=== PATIENT | female | born 1980 | race Caucasian/White ===

== ENCOUNTER 2018-04-13 15:23 | Emergency (ER) | payer OTHER ==
[~2018-04-13] VITALS: Ht 172.7 cm; Wt 63.5 kg
[~2018-04-13 15:23] MED LIST: CENTRUM SILVER1 EAC2 PO; IBUPROFEN 600600 M1 PO; MENSTRUAL RELI1 EACH PO; NORCO 5-325 TA1 EACH PO; PERMETHRIN60 GM TOP
[2018-04-13] MEDS ORDERED: BIRTH CONTROL PO (15:28)
[2018-04-13] MEDS ORDERED: TRAMADOL 50 MG50 MG PO (16:03)
[2018-04-13] MEDS ORDERED: PENICILLIN VK500 M1 PO (16:03)
[2018-04-13 16:19] VITALS: BP 138/86
== END 2018-04-13 16:20 | disposition home or self-care (01) ==
LOC: ER 15:23
DX: K02.9 Dental caries, unspecified (principal); F17.210 Nicotine dependence, cigarettes, uncomplicated

== ENCOUNTER 2018-04-23 15:21 | Emergency (ER) | payer OTHER ==
[~2018-04-23] VITALS: Ht 167.6 cm; Wt 77.1 kg
[~2018-04-23 15:21] MED LIST changes: +BIRTH CONTROL PO; +PENICILLIN VK500 M1 PO; +TRAMADOL 50 MG50 MG PO
[2018-04-23] MEDS ORDERED: ERYTHROMYCIN E3.5 G3 OPHTHALMIC (16:08)
[2018-04-23 17:09] VITALS: BP 134/79
== END 2018-04-23 17:10 | disposition home or self-care (01) ==
LOC: ER 15:21
DX: H10.89 Other conjunctivitis (principal); B96.89 Other specified bacterial agents as the cause of diseases classified elsewhere; F17.210 Nicotine dependence, cigarettes, uncomplicated; E28.2 Polycystic ovarian syndrome; Z90.49 Acquired absence of other specified parts of digestive tract

== ENCOUNTER 2019-02-05 00:05 | Emergency (ER) | payer OTHER ==
[~2019-02-05] VITALS: Ht 172.7 cm; Wt 78.5 kg
[~2019-02-05 00:05] MED LIST changes: +ERYTHROMYCIN E3.5 G3 OPHTHALMIC
[2019-02-05 00:34] LABS: ABSOLUTE NEUTROPHILS 7.3 thou/uL (1.4-8.2); BASOPHILS 1.3 % (0.0-2.0); EOSINOPHILS 5.8 % (0.0-3.0); HEMATOCRIT 37.1 % (37.0-47.0); HEMOGLOBIN 12.4 gm/dL (12.0-15.0); LYMPHOCYTES 23.4 % (24.0-44.0); MCH 28.5 pg (26.0-34.0); MCHC 33.3 g/dL (28.0-37.0); MCV 85.4 fL (80.0-100.0); MONOCYTES 7.6 % (1.0-8.0); PLATELET COUNT 511 thou/uL (150-400); POLYS 61.9 % (36.0-66.0); RBC 4.34 mil/uL (4.20-5.00); RDW 15.7 % (10.5-14.5); WBC 11.8 thou/uL (4.0-11.0)
[2019-02-05 00:41] LABS: ANION GAP 6 mmol/L (7-16); BUN 10 mg/dL (7-18); CALCIUM 9.2 mg/dL (8.5-10.1); CHLORIDE 105 mmol/L (98-107); CO2 30 mmol/L (21-32); CREATININE 0.8 mg/dL (0.6-1.0); GLUCOSE 116 mg/dL (74-106); POTASSIUM 3.5 mmol/L (3.5-5.1); SODIUM 141 mmol/L (136-145)
[2019-02-05 00:51] LABS: ALBUMIN 3.2 g/dL (3.4-5.0); MAGNESIUM 1.9 mg/dL (1.8-2.4); SGOT 10 U/L (15-37); SGPT 13 U/L (30-65); TOTAL BILIRUBIN 0.4 mg/dL (<0.1-1.0); TOTAL PROTEIN 7.3 g/dL (6.4-8.2); TROPONIN-I <0.06 ng/mL (<0.06)
[2019-02-05 01:11] VITALS: BP 116/81
--- NOTE | 2019-02-06 14:01 | EKG ---
[address] [address] ELECTROCARDIOGRAM REPORT Name: DANILO MALHOTRA Room #: DEP [facility]#: [id number] Admission: 02/05/19 Attend Phys: Discharge: 02/05/19 Date of : 78 Report #: [id number] THIS REPORT FOR: //name// [facility] ED Test Date: 2019-02-05 Test Time: 00:55:33 Pat Name: DANILO MALHOTRA Department: Room: Gender: F Machine Driller: [id number] : 1980 Requested By: Matty Sood Order Number: [id number] MD: Gab Bowen Measurements Intervals [place] Rate: 58 P: -12 NE: 181 QRS: -12 QRSD: 103 T: 12 QT: 427 QTc: 420 Interpretive Statements Sinus rhythm Low voltage, precordial leads No previous ECG available for comparison Electronically Signed On 02-06-2019 14:00:47 CDT by Gab Bowen [email or web address] <ELECTRONICALLY SIGNED> By: Gab Bowen MD 02/06/19 1400 0055 0055 Gab Bowen MD /DAVON
== END 2019-02-05 01:16 | disposition home or self-care (01) ==
LOC: ER 00:05
PROVIDERS: Emergency Medicine
DX: R07.89 Other chest pain (principal); F17.210 Nicotine dependence, cigarettes, uncomplicated; E28.2 Polycystic ovarian syndrome; Z90.49 Acquired absence of other specified parts of digestive tract

== ENCOUNTER 2019-10-18 15:55 | Emergency (ER) | payer OTHER ==
[~2019-10-18] VITALS: Ht 172.7 cm; Wt 84.4 kg
[2019-10-18] MEDS ORDERED: ASA81BEC PO (16:08)
[2019-10-18 18:07] VITALS: BP 110/79
== END 2019-10-18 18:08 | disposition home or self-care (01) ==
LOC: ER 15:55
DX: K30 Functional dyspepsia (principal); L25.9 Unspecified contact dermatitis, unspecified cause; L98.8 Other specified disorders of the skin and subcutaneous tissue; F17.210 Nicotine dependence, cigarettes, uncomplicated; K21.9 Gastro-esophageal reflux disease without esophagitis; Z79.899 Other long term (current) drug therapy; Z79.82 Long term (current) use of aspirin; Z90.49 Acquired absence of other specified parts of digestive tract; Z98.890 Other specified postprocedural states